=== PATIENT | male | born 1960 | race African-American/Black ===

== ENCOUNTER 2024-05-14 12:15 | Inpatient (IN) | payer OTHER ==
[~2024-05-14] VITALS: Ht 188 cm; Wt 149.2 kg
[2024-05-14 13:43] LABS: BASOPHILS % 0.4 % (0.0-2.0); EOSINOPHILS % 0.2 % (0.0-5.0); HEMATOCRIT. 40.9 % (42.0-52.0); HEMOGLOBIN. 12.8 g/dL (14.0-18.0); LYMPHOCYTES % 9.1 % (20.0-50.0); MEAN CORPUSCULAR HEMOGLOBIN 27.4 pg (28.0-32.0); MEAN CORPUSCULAR HGB CONC 31.2 g/dL (31.0-37.0); MEAN CORPUSCULAR VOLUME 87.7 fL (80.0-94.0); MEAN PLATELET VOLUME 9.7 fl (7.4-10.4); MONOCYTES % 5.9 % (2.0-8.0); NEUTROPHILS % 84.4 % (40.0-76.0); PLATELET 211 x1000/uL (130-400); RED BLOOD CELL COUNT 4.66 mill/uL (4.7-6.1); RED CELL DISTRIBUTION WIDTH 17.7 % (11.6-14.6); WHITE BLOOD COUNT 9.9 x1000/uL (4.5-11.0)
[2024-05-14 13:45] LABS: CHLORIDE 115 mEq/L (98-107); POTASSIUM 5.9 mEq/L (3.5-5.1); SODIUM 145 mEq/L (136-145)
[2024-05-14 13:46] LABS: CALCIUM 9.4 mg/dL (8.7-10.4); CARBON DIOXIDE 20 mEq/L (21-32)
[2024-05-14 13:51] LABS: CREATININE 2.1 mg/dL (0.6-1.3); GLUCOSE 157 mg/dL (70-105); UREA NITROGEN BLOOD 39 mg/dL (9-23)
[2024-05-14 13:53] LABS: ALANINE AMINOTRANSFERASE 25 IU/L (10-49); ALBUMIN 3.9 g/dL (3.2-4.8); ASPARTATE AMINOTRANSFERASE 89 IU/L (<34); BILIRUBIN DIRECT 0.2 mg/dL (<=3.0); BILIRUBIN TOTAL 0.6 mg/dL (0.1-1.0)
[2024-05-14 13:54] LABS: PROTEIN TOTAL 7.3 g/dL (6.0-8.3)
[2024-05-14 14:04] LABS: CREATINE KINASE 3004 IU/L (46-171)
[2024-05-14 14:17] LABS: TROPONIN I HIGH SENSITIVITY 18055 ng/L (3.0-53)
[2024-05-14] MEDS: SODIUM CHLORIDE 0.9% 1,000 ML IV ONE ×2 (15:12→15:27)
[2024-05-14] MEDS: ENOXAPARIN 150MG/ML SYR SUBCUT ONE (15:15)
[2024-05-14] MEDS: FUROSEMIDE 40MG/4ML VIAL IV NR (15:28)
[2024-05-14] MEDS ORDERED: DEXTROSE 50% WATER 50ML SYRINGE IV NR (15:30)
[2024-05-14] MEDS: INSULIN REGULAR (HUMULIN R) 1000UNITS/10ML VIAL IV NR (15:30)
[2024-05-14 15:45] VITALS: PULSE 74; RESP 20
[2024-05-14] MEDS: ALBUTEROL (0.083%) 2.5MG/3ML NEB HHN SCH (15:46)
[2024-05-14] MEDS: CALCIUM GLUCONATE 1GM PREMIX 50 ML IV NR (15:58)
[2024-05-14 18:00] VITALS: BP 162/83; PULSE 64; RESP 23; TEMP 37.4; O2SAT 100
[2024-05-14 20:00] VITALS: BP 154/80; PULSE 67; RESP 12; TEMP 36.4; O2SAT 95
[2024-05-14] MEDS ORDERED: MORPHINE SULFATE 2 MG/ML INJ (NOT FOR IM USE) IV PRN ×2 (20:00→22:30)
[2024-05-14] MEDS ORDERED: NALOXONE HCL 0.4MG/ML VIAL IV PRN ×2 (20:15→22:45)
[2024-05-14 20:54] LABS: PROTHROMBIN TIME 11.2 sec (9.6-11.0)
[2024-05-14 22:00] VITALS: BP_SYST 100; BP_SYST 152; BP_DIAS 66; BP_DIAS 69; PULSE 69; RESP 18; RESP 19; TEMP 36.7; TEMP 36.8; O2SAT 98
[2024-05-14] MEDS ORDERED: ONDANSETRON HCL 4MG/2ML INJ IV PRN (22:30)
[2024-05-14] MEDS ORDERED: ZOLPIDEM TARTRATE 5MG TABLET PO PRN (22:30)
[2024-05-14] MEDS ORDERED: MAGNESIUM/ALUMINUM HYDROXIDE/SIMETHICONE 30ML UDC PO PRN (22:30)
[2024-05-14] MEDS ORDERED: ACETAMINOPHEN 325MG TABLET PO PRN (22:30)
[2024-05-14] MEDS ORDERED: DEXTROSE 50% WATER 50ML SYRINGE IV PRN (22:30)
[2024-05-14] MEDS ORDERED: ENOXAPARIN 40MG/0.4ML SYR SUBCUT SCH (22:30)
[2024-05-14] MEDS ORDERED: HYDROCODONE/ACETAMINOPHEN 5/325MG TABLET PO PRN (22:30)
[2024-05-14] MEDS ORDERED: IPRATROPIUM/ALBUTEROL 0.5-3(2.5)MG/3ML NEB NEB PRN (22:30)
[2024-05-14] MEDS: PANTOPRAZOLE SODIUM 40 MG/VIAL IV SCH (22:58)
[2024-05-14] MEDS: SODIUM CHLORIDE 0.9% 1,000 ML IV SCH (22:58)
[2024-05-15] VITALS (12 sets, daily range): BP systolic 111–188; BP diastolic 66–103; PULSE 38–70; RESP 16–21; TEMP 36.6–37.6; O2SAT 96–100
[2024-05-15 00:20] LABS: TROPONIN I HIGH SENSITIVITY 36616 ng/L (3.0-53)
[2024-05-15] MEDS: CLONIDINE 0.1MG TABLET PO PRN (00:25)
[2024-05-15 00:56] LABS: CLARITY URINE CLEAR (CLEAR); COLOR URINE YELLOW (YELLOW); GLUCOSE URINE NEGATIVE (NEGATIVE); KETONES URINE NEGATIVE (NEGATIVE); LEUKOCYTE ESTERASE URINE NEGATIVE (NEGATIVE); NITRITE URINE NEGATIVE (NEGATIVE); OCCULT BLOOD URINE 2+ (NEGATIVE); PROTEIN URINE 1+ (NEGATIVE); UROBILINOGEN URINE 0.2 E.U./dL (0.2-1.0)
[2024-05-15 01:00] LABS: *AMPHETAMINES SCREEN URINE NEGATIVE (NEGATIVE); *BARBITURATES SCREEN URINE NEGATIVE (NEGATIVE); *BENZODIAZEPINES SCREEN URINE NEGATIVE (NEGATIVE); *COCAINE SCREEN URINE NEGATIVE (NEGATIVE); METHADONE URINE SCREEN NEGATIVE (NEGATIVE); OPIATES URINE SCREEN NEGATIVE (NEGATIVE); PHENCYCLIDINE URINE SCREEN NEGATIVE (NEGATIVE)
[2024-05-15 01:01] LABS: CANNABINOID URINE SCREEN NEGATIVE (NEGATIVE); ECSTASY MDMA SCREEN URINE NEGATIVE (NEGATIVE)
[2024-05-15 01:24] LABS: CHLORIDE 115 mEq/L (98-107); POTASSIUM 4.6 mEq/L (3.5-5.1); SODIUM 147 mEq/L (136-145)
[2024-05-15 01:25] LABS: CALCIUM 9.6 mg/dL (8.7-10.4); CARBON DIOXIDE 20 mEq/L (21-32)
[2024-05-15 01:30] LABS: CREATININE 1.9 mg/dL (0.6-1.3); GLUCOSE 86 mg/dL (70-105); UREA NITROGEN BLOOD 36 mg/dL (9-23)
[2024-05-15] MEDS ORDERED: HYDRALAZINE 20MG/ML VIAL IV PRN (01:45)
[2024-05-15] MEDS: MAGNESIUM 2 G PREMIX 50 ML IV NR (03:22)
[2024-05-15 05:18] LABS: CHLORIDE 115 mEq/L (98-107); POTASSIUM 4.8 mEq/L (3.5-5.1); SODIUM 147 mEq/L (136-145)
[2024-05-15 05:19] LABS: CARBON DIOXIDE 21 mEq/L (21-32)
[2024-05-15 05:20] LABS: CALCIUM 9.4 mg/dL (8.7-10.4)
[2024-05-15 05:24] LABS: CREATININE 1.9 mg/dL (0.6-1.3); GLUCOSE 89 mg/dL (70-105); UREA NITROGEN BLOOD 36 mg/dL (9-23)
[2024-05-15 05:28] LABS: BACTERIA URINE NONE SEEN; RBC URINE 0-2 /hpf (0-2); SQUAMOUS EPITHELIAL CELL URINE NONE SEEN /lpf (RARE/1+); WBC URINE 0-2 /hpf (0-2)
[2024-05-15 05:37] LABS: CREATINE KINASE 4877 IU/L (46-171)
[2024-05-15] MEDS ORDERED: HYDRALAZINE 20MG/ML VIAL IV SCH (06:00)
[2024-05-15] MEDS: BLOOD SUGAR DIAGNOSTIC STRIP TEST SCH (06:25)
[2024-05-15] MEDS: INSULIN LISPRO 100 UNITS/ML SUBCUT SCH (08:00)
[2024-05-15 08:01] LABS: TROPONIN I HIGH SENSITIVITY 31410 ng/L (3.0-53)
[2024-05-15 08:05] LABS: BASOPHILS % 0.3 % (0.0-2.0); EOSINOPHILS % 1.1 % (0.0-5.0); HEMATOCRIT. 37.9 % (42.0-52.0); HEMOGLOBIN. 11.9 g/dL (14.0-18.0); LYMPHOCYTES % 16.4 % (20.0-50.0); MEAN CORPUSCULAR HEMOGLOBIN 27.7 pg (28.0-32.0); MEAN CORPUSCULAR HGB CONC 31.4 g/dL (31.0-37.0); MEAN CORPUSCULAR VOLUME 88.2 fL (80.0-94.0); MEAN PLATELET VOLUME 9.9 fl (7.4-10.4); MONOCYTES % 8.7 % (2.0-8.0); NEUTROPHILS % 73.5 % (40.0-76.0); PLATELET 191 x1000/uL (130-400); RED BLOOD CELL COUNT 4.29 mill/uL (4.7-6.1); RED CELL DISTRIBUTION WIDTH 17.8 % (11.6-14.6); WHITE BLOOD COUNT 6.8 x1000/uL (4.5-11.0)
[2024-05-15] MEDS: ENOXAPARIN 150MG/ML SYR SUBCUT SCH (10:35)
[2024-05-15] MEDS ORDERED: DEXT 5%/0.45% NACL 500ML 500 ML IV SCH (13:15)
[2024-05-15] MEDS: DEXT 5%/0.45% NACL 1000ML 1,000 ML IV SCH (14:48)
[2024-05-15 18:54] LABS: TROPONIN I HIGH SENSITIVITY 14802 ng/L (3.0-53)
[2024-05-15] MEDS: AMLODIPINE 5MG TABLET PO SCH (20:59)
[2024-05-15] MEDS: ATORVASTATIN CALCIUM 20MG TABLET PO SCH (20:59)
[2024-05-15] MEDS: ENOXAPARIN 40MG/0.4ML SYR SUBCUT SCH (20:59)
[2024-05-16] VITALS (13 sets, daily range): BP systolic 129–192; BP diastolic 59–171; PULSE 53–70; RESP 14–23; TEMP 36.5–37.1; O2SAT 95–100
[2024-05-16 06:32] LABS: CREATINE KINASE 3788 IU/L (46-171)
[2024-05-16 06:42] LABS: TROPONIN I HIGH SENSITIVITY 11147 ng/L (3.0-53)
[2024-05-16] MEDS: ASPIRIN 81MG TABLET PO SCH (11:07)
[2024-05-16 12:42] LABS: CREATINE KINASE 3660 IU/L (46-171)
[2024-05-16] MEDS: MAGNESIUM OXIDE 400MG TABLET PO SCH (21:28)
[2024-05-16] MEDS: CLONIDINE 0.2MG TABLET PO PRN (21:55)
[2024-05-18 09:10] LABS: COMPLEMENT C3 172 mg/dL (82-167); COMPLEMENT C4 48 mg/dL (12-38)
[2024-05-18 13:08] LABS: ANTI-NUCLEAR ANTIBODIES DIRECT Negative (Negative)
== END 2024-05-16 23:41 | disposition short-term general hospital (02) | DRG 871 ==
LOC: ER 12:15 → 5EST 15:34 → EDBEDREQSVC 16:31
PROVIDERS: ADMIT Internal Medicine; ATTEND Internal Medicine
DX: A41.9 Sepsis, unspecified organism (principal); I21.4 Non-ST elevation (NSTEMI) myocardial infarction; N17.0 Acute kidney failure with tubular necrosis; E87.0 Hyperosmolality and hypernatremia; M62.82 Rhabdomyolysis; E66.01 Morbid (severe) obesity due to excess calories; E78.5 Hyperlipidemia, unspecified; E87.5 Hyperkalemia; E86.0 Dehydration; I44.1 Atrioventricular block, second degree; E11.36 Type 2 diabetes mellitus with diabetic cataract; G47.33 Obstructive sleep apnea (adult) (pediatric); Z79.899 Other long term (current) drug therapy; Z80.3 Family history of malignant neoplasm of breast; Z80.42 Family history of malignant neoplasm of prostate; I13.10 Hypertensive heart and chronic kidney disease without heart failure, with stage 1 through stage 4 chronic kidney disease, or unspecified chronic kidney disease; E11.22 Type 2 diabetes mellitus with diabetic chronic kidney disease; N18.9 Chronic kidney disease, unspecified; E83.42 Hypomagnesemia
CPT/HCPCS: 36415; 71045; 80048; 80076; 80305; 81003; 82550; 82962; 83036; 83735; 84484; 85025; 86038; 86160; 93005; 93306; 93970; 94070; 94640; 94664; 99291; A4606; J0360; J0610; J1650; J1815; J1940; J2470; J3475; J7030

== ENCOUNTER 2024-05-26 15:38 | Inpatient (IN) | payer OTHER ==
[~2024-05-26] VITALS: Ht 180.3 cm; Wt 147.9 kg
[2024-05-26 16:33] LABS: BASOPHILS % 0.5 % (0.0-2.0); EOSINOPHILS % 2.1 % (0.0-5.0); HEMATOCRIT. 39.4 % (42.0-52.0); HEMOGLOBIN. 12.7 g/dL (14.0-18.0); LYMPHOCYTES % 14.1 % (20.0-50.0); MEAN CORPUSCULAR HEMOGLOBIN 27.8 pg (28.0-32.0); MEAN CORPUSCULAR HGB CONC 32.3 g/dL (31.0-37.0); MEAN CORPUSCULAR VOLUME 86.2 fL (80.0-94.0); MEAN PLATELET VOLUME 9.1 fl (7.4-10.4); MONOCYTES % 6.4 % (2.0-8.0); NEUTROPHILS % 76.9 % (40.0-76.0); PLATELET 243 x1000/uL (130-400); RED BLOOD CELL COUNT 4.58 mill/uL (4.7-6.1); RED CELL DISTRIBUTION WIDTH 17.5 % (11.6-14.6); WHITE BLOOD COUNT 5.5 x1000/uL (4.5-11.0)
[2024-05-26 16:51] LABS: CHLORIDE 107 mEq/L (98-107); POTASSIUM 4.8 mEq/L (3.5-5.1); SODIUM 139 mEq/L (136-145)
[2024-05-26 16:52] LABS: CARBON DIOXIDE 21 mEq/L (21-32)
[2024-05-26 16:53] LABS: CALCIUM 9.5 mg/dL (8.7-10.4)
[2024-05-26 16:57] LABS: CREATININE 2.4 mg/dL (0.6-1.3)
[2024-05-26] MEDS: DEXTROSE 50% WATER 50ML SYRINGE IV ONE ×2 (16:57→16:58)
[2024-05-26 16:58] LABS: UREA NITROGEN BLOOD 62 mg/dL (9-23)
[2024-05-26 16:59] LABS: ALANINE AMINOTRANSFERASE 44 IU/L (10-49); ALBUMIN 4.1 g/dL (3.2-4.8); ASPARTATE AMINOTRANSFERASE 38 IU/L (<34)
[2024-05-26 17:00] LABS: BILIRUBIN DIRECT 0.2 mg/dL (<=3.0); BILIRUBIN TOTAL 0.5 mg/dL (0.1-1.0); PROTEIN TOTAL 7.9 g/dL (6.0-8.3)
[2024-05-26 17:11] LABS: GLUCOSE 40 mg/dL (70-105)
[2024-05-26 17:12] LABS: TROPONIN I HIGH SENSITIVITY 88 ng/L (3.0-53)
[2024-05-26] MEDS: LORAZEPAM 1MG TABLET PO NR (17:17)
[2024-05-26 17:22] LABS: D-DIMER 1.77 mg/L FEU (<0.50); PROTHROMBIN TIME 11.2 sec (9.6-11.0)
[2024-05-26] MEDS: ASPIRIN 325MG EC TABLET PO NR (21:48)
[2024-05-26] MEDS: IOHEXOL-350 100 ML BOTTLE ONE (23:16)
[2024-05-26 23:29] LABS: CLARITY URINE CLEAR (CLEAR); COLOR URINE YELLOW (YELLOW); GLUCOSE URINE 1+ (NEGATIVE); KETONES URINE NEGATIVE (NEGATIVE); LEUKOCYTE ESTERASE URINE NEGATIVE (NEGATIVE); NITRITE URINE NEGATIVE (NEGATIVE); OCCULT BLOOD URINE NEGATIVE (NEGATIVE); PH URINE 5.5 (4.5-8.0); PROTEIN URINE NEGATIVE (NEGATIVE); SPECIFIC GRAVITY URINE 1.022 (1.005-1.030)
[2024-05-26] MEDS ORDERED: GLIP10TA17 (23:55)
[2024-05-26] MEDS ORDERED: ATOR40TA70 (23:55)
[2024-05-26] MEDS ORDERED: HYDR25TA (23:55)
[2024-05-26] MEDS ORDERED: EMPA25TA (23:55)
[2024-05-26] MEDS ORDERED: AMLO10TA80 (23:55)
[2024-05-26] MEDS ORDERED: ALLO300T2 (23:55)
[2024-05-26] MEDS ORDERED: NITR0.4T49 SL (23:55)
[2024-05-26] MEDS ORDERED: CLOP75TA33 PO (23:55)
[2024-05-26] MEDS ORDERED: METF-414 (23:55)
[2024-05-26] MEDS ORDERED: COLC0.6T66 (23:55)
[2024-05-26] MEDS ORDERED: ASPI-1497 PO (23:57)
[2024-05-27] VITALS (13 sets, daily range): BP systolic 103–150; BP diastolic 45–84; PULSE 33–82; RESP 13–22; TEMP 36.7–37.4; O2SAT 93–100
[2024-05-27 00:14] LABS: BACTERIA URINE NONE SEEN; RBC URINE 0-2 /hpf (0-2); SQUAMOUS EPITHELIAL CELL URINE FEW /lpf (RARE/1+); WBC URINE 0-2 /hpf (0-2)
[2024-05-27] MEDS ORDERED: HYDROCODONE/ACETAMINOPHEN 5/325MG TABLET PO PRN (00:15)
[2024-05-27] MEDS ORDERED: ONDANSETRON HCL 4MG/2ML INJ IV PRN (00:15)
[2024-05-27] MEDS ORDERED: CLONIDINE 0.1MG TABLET PO PRN (00:15)
[2024-05-27] MEDS ORDERED: ZOLPIDEM TARTRATE 5MG TABLET PO PRN (00:15)
[2024-05-27] MEDS ORDERED: DEXTROSE 50% WATER 50ML SYRINGE IV PRN (00:15)
[2024-05-27] MEDS: DEXT 5%/0.45% NACL 1000ML 1,000 ML IV SCH (01:51)
[2024-05-27] MEDS: BLOOD SUGAR DIAGNOSTIC STRIP TEST SCH (03:48)
[2024-05-27] MEDS: ENOXAPARIN 150MG/ML SYR SUBCUT SCH (05:34)
[2024-05-27 07:51] LABS: *AMPHETAMINES SCREEN URINE NEGATIVE (NEGATIVE); *BENZODIAZEPINES SCREEN URINE NEGATIVE (NEGATIVE)
[2024-05-27 07:52] LABS: *BARBITURATES SCREEN URINE NEGATIVE (NEGATIVE); *COCAINE SCREEN URINE NEGATIVE (NEGATIVE); CANNABINOID URINE SCREEN NEGATIVE (NEGATIVE); ECSTASY MDMA SCREEN URINE NEGATIVE (NEGATIVE); METHADONE URINE SCREEN NEGATIVE (NEGATIVE); OPIATES URINE SCREEN NEGATIVE (NEGATIVE); PHENCYCLIDINE URINE SCREEN NEGATIVE (NEGATIVE)
[2024-05-27 09:08] LABS: TROPONIN I HIGH SENSITIVITY 86 ng/L (3.0-53)
[2024-05-27] MEDS: PANTOPRAZOLE SODIUM 40 MG/VIAL IV SCH (09:34)
[2024-05-27] MEDS: AMLODIPINE 2.5MG TABLET PO SCH (12:00)
[2024-05-27] MEDS: ASPIRIN 81MG EC TABLET PO SCH (12:29)
[2024-05-27] MEDS: ATORVASTATIN CALCIUM 20MG TABLET PO SCH (20:36)
[2024-05-27 21:21] LABS: TROPONIN I HIGH SENSITIVITY 63 ng/L (3.0-53)
[2024-05-28 01:01] VITALS: BP 244/90; PULSE 70; TEMP 98.3; O2SAT 100
== END 2024-05-27 23:20 | disposition short-term general hospital (02) | DRG 638 ==
LOC: ER 15:38 → 5EST 21:22 → EDBEDREQSVC 21:57 → EDBEDREQ 22:14 → EDBEDREQTM 22:14
PROVIDERS: ADMIT Internal Medicine; ATTEND Internal Medicine
DX: E11.649 Type 2 diabetes mellitus with hypoglycemia without coma (principal); Z68.42 Body mass index [BMI] 45.0-49.9, adult; E11.22 Type 2 diabetes mellitus with diabetic chronic kidney disease; E78.5 Hyperlipidemia, unspecified; G47.33 Obstructive sleep apnea (adult) (pediatric); I25.10 Atherosclerotic heart disease of native coronary artery without angina pectoris; I44.1 Atrioventricular block, second degree; I48.0 Paroxysmal atrial fibrillation; I12.9 Hypertensive chronic kidney disease with stage 1 through stage 4 chronic kidney disease, or unspecified chronic kidney disease; E66.01 Morbid (severe) obesity due to excess calories; N17.9 Acute kidney failure, unspecified; N18.9 Chronic kidney disease, unspecified; I25.2 Old myocardial infarction; Z79.82 Long term (current) use of aspirin; Z79.899 Other long term (current) drug therapy
CPT/HCPCS: 36415; 71045; 71275; 80048; 80076; 80305; 81003; 82962; 83036; 83880; 84484; 85025; 85379; 93005; 93970; 99291; J1650; J2470; Q9967

== ENCOUNTER 2024-06-10 16:16 | Inpatient (IN) | payer OTHER ==
[~2024-06-10] VITALS: Ht 185.4 cm; Wt 141.5 kg
[~2024-06-10 16:16] MED LIST: ALLO300T2; AMLO10TA80; ASPI-1497 PO; ATOR40TA70; CLOP75TA33 PO; COLC0.6T66; EMPA25TA; GLIP10TA17; NITR0.4T49 SL
[2024-06-10 16:19] VITALS: O2SAT 99
[2024-06-10] MEDS: MORPHINE SULFATE 4 MG/ML INJ (FOR IV/IM USE) IV NR (17:45)
[2024-06-10] MEDS: FUROSEMIDE 40MG/4ML VIAL IVP NR (17:45)
[2024-06-10 17:53] LABS: BASOPHILS % 0.4 % (0.0-2.0); HEMATOCRIT. 33.1 % (42.0-52.0); HEMOGLOBIN. 10.3 g/dL (14.0-18.0); LYMPHOCYTES % 9.9 % (20.0-50.0); MEAN CORPUSCULAR HGB CONC 31.2 g/dL (31.0-37.0); MEAN CORPUSCULAR VOLUME 86.4 fL (80.0-94.0); MEAN PLATELET VOLUME 8.5 fl (7.4-10.4); MONOCYTES % 8.7 % (2.0-8.0); PLATELET 283 x1000/uL (130-400); RED BLOOD CELL COUNT 3.84 mill/uL (4.7-6.1); RED CELL DISTRIBUTION WIDTH 17.4 % (11.6-14.6); WHITE BLOOD COUNT 7.3 x1000/uL (4.5-11.0)
[2024-06-10 17:57] LABS: POTASSIUM 5.1 mEq/L (3.5-5.1)
[2024-06-10 17:59] LABS: CALCIUM 9.6 mg/dL (8.7-10.4)
[2024-06-10 18:03] LABS: CREATININE 2.4 mg/dL (0.6-1.3)
[2024-06-10 18:06] LABS: PROTHROMBIN TIME 11.2 sec (9.6-11.0)
[2024-06-11] MEDS ORDERED: DEXTROSE 50% WATER 50ML SYRINGE IV PRN (01:45)
[2024-06-11] MEDS ORDERED: NITROGLYCERIN 0.4MG TABLET SL SL PRN (01:45)
[2024-06-11] MEDS ORDERED: ACETAMINOPHEN 325MG TABLET PO PRN (01:45)
[2024-06-11 02:22] VITALS: BP 147/56; PULSE 89; RESP 18; TEMP 37
[2024-06-11 04:00] VITALS: BP 111/72; PULSE 69; RESP 19; TEMP 37.8; O2SAT 95
[2024-06-11] MEDS: BLOOD SUGAR DIAGNOSTIC STRIP TEST SCH (07:20)
[2024-06-11] MEDS: INSULIN LISPRO 100 UNITS/ML SUBCUT SCH (07:50)
[2024-06-11 08:00] VITALS: BP 160/70; PULSE 75; RESP 20; TEMP 36.7; O2SAT 98
[2024-06-11] MEDS: CLOPIDOGREL 75MG TABLET PO SCH (09:00)
[2024-06-11] MEDS: EMPAGLIFLOZIN 25MG TABLET PO SCH (09:00)
[2024-06-11] MEDS: ASPIRIN 81MG TABLET PO SCH (09:20)
[2024-06-11] MEDS: COLCHICINE 0.6MG TABLET PO SCH (09:21)
[2024-06-11] MEDS: AMLODIPINE 10MG TABLET PO SCH (09:21)
[2024-06-11] MEDS: ALLOPURINOL 300 MG TABLET PO SCH (09:21)
[2024-06-11] MEDS: GLIPIZIDE 10MG TABLET PO SCH (09:21)
[2024-06-11 12:00] VITALS: BP 155/72; PULSE 80; RESP 20; TEMP 36.7; O2SAT 96
[2024-06-11] MEDS: PANTOPRAZOLE 40MG DR TABLET PO SCH (15:54)
[2024-06-11] MEDS: PREDNISONE 10MG TABLET PO SCH (15:55)
[2024-06-11 16:00] VITALS: BP 162/73; PULSE 75; RESP 18; TEMP 36.6; O2SAT 95
[2024-06-11] MEDS: FUROSEMIDE 40MG/4ML VIAL IVP SCH (17:09)
[2024-06-11] MEDS ORDERED: ATORVASTATIN CALCIUM 40MG TABLET PO SCH (21:00)
== END 2024-06-11 21:00 | disposition short-term general hospital (02) | DRG 683 ==
LOC: ER 16:16 → 6EST 22:03 → EDBEDREQTM 22:09 → EDBEDREQSVC 22:09 → EDBEDREQ 22:09
PROVIDERS: ADMIT Internal Medicine; ATTEND Internal Medicine
DX: N17.9 Acute kidney failure, unspecified (principal); I13.0 Hypertensive heart and chronic kidney disease with heart failure and stage 1 through stage 4 chronic kidney disease, or unspecified chronic kidney disease; M1A.00X0 Idiopathic chronic gout, unspecified site, without tophus (tophi); I50.9 Heart failure, unspecified; E78.5 Hyperlipidemia, unspecified; N18.9 Chronic kidney disease, unspecified; M17.12 Unilateral primary osteoarthritis, left knee; D64.9 Anemia, unspecified; I25.10 Atherosclerotic heart disease of native coronary artery without angina pectoris; E11.22 Type 2 diabetes mellitus with diabetic chronic kidney disease; Z79.82 Long term (current) use of aspirin; Z79.01 Long term (current) use of anticoagulants; Z79.899 Other long term (current) drug therapy; Z79.84 Long term (current) use of oral hypoglycemic drugs
CPT/HCPCS: 36415; 71045; 73560; 80048; 82962; 83036; 85025; 93005; 93970; 99285; A4606; J1815; J1940; J2270; J7512